=== PATIENT | female | born 1980 | race Caucasian/White ===

== ENCOUNTER 2021-11-28 18:00 | Emergency (ER) | payer OTHER ==
[2021-11-28] MEDS ORDERED: FAMOTIDINE 20 MG/50 ML IVPB 20 MG/50 ML MG IVPB ONE ×2 (18:19→18:26)
[2021-11-28] MEDS ORDERED: ACETAMINOPHEN 1000 MG/100 ML BAG IVPB ONE (18:19)
[2021-11-28] MEDS ORDERED: LACTATED RINGERS SOLUTION 1000 ML INFUS.BAG IV ONE (18:19)
[2021-11-28] MEDS ORDERED: ONDANSETRON 4 MG/2 ML VIAL IVPUSH ONE (18:19)
[2021-11-28] MEDS ORDERED: ACETAMINOPHEN INJECTION 100 ML IVPB ONE (18:26)
[2021-11-28] MEDS ORDERED: ONDANSETRON 4 MG/2 ML VIAL ONE (18:27)
[2021-11-28 18:44] VITALS: TEMP 98.5; BMI 24.2
[2021-11-28] MEDS ORDERED: KETOROLAC TROMETHAMINE 15 MG/ML VIAL IVPUSH ONE (18:54)
[2021-11-28 18:56] LABS: INR 1.13 (0.83-1.09)
[2021-11-28 18:58] LABS: ACTIVATED PTT 29.3 SECONDS (25.2-36.5)
[2021-11-28] MEDS ORDERED: KETOROLAC TROMETHAMINE 15 MG/ML VIAL ONE (18:59)
[2021-11-28 19:01] LABS: ALBUMIN 3.9 g/dl (3.4-5.0); BILIRUBIN,TOTAL 0.3 mg/dl (0.2-1); CALCIUM 9.3 mg/dl (8.5-10); CREATININE 0.7 mg/dl (0.55-1.3); TOT PROT 6.9 g/dl (6.4-8.2)
[2021-11-28 19:38] LABS: BASO % 0.7 % (0-2.0); EOS % 5.5 % (0-4.5); HEMATOCRIT 40.7 % (32.4-45.2); HEMOGLOBIN 13.7 GM/dL (10.7-15.3); MCH 28.1 pg (25.7-33.7); MCHC 33.6 g/dl (32.0-36.0); MEAN CELL VOLUME 83.6 fl (80-96); MEAN PLT VOLUME 8.9 fl (7.5-11.1); MONO % 9.9 % (3.8-10.2); NEUT % 59.9 % (42.8-82.8); PLATELET COUNT 279 10^3/uL (134-434); RBC 4.86 M/mm3 (3.60-5.2); RDW 14.2 % (11.6-15.6)
[2021-11-28 19:48] VITALS: BP 108/58; PULSE 61
== END 2021-11-28 20:00 | disposition home or self-care (01) ==
LOC: FER 18:00
PROC: 3E0333Z Introduction of Anti-inflammatory into Peripheral Vein, Percutaneous Approach (ICD-10-PCS; principal; 2021-11-28)
PROC: 3E033GC Introduction of Other Therapeutic Substance into Peripheral Vein, Percutaneous Approach (ICD-10-PCS; 2021-11-28)
PROC: 3E0333Z Introduction of Anti-inflammatory into Peripheral Vein, Percutaneous Approach (ICD-10-PCS; 2021-11-28)
PROC: 3E033GC Introduction of Other Therapeutic Substance into Peripheral Vein, Percutaneous Approach (ICD-10-PCS; 2021-11-28)
DX: R07.9 Chest pain, unspecified (principal)
CPT/HCPCS: 36415; 71045-TC-FY; 80053; 82550; 84484; 84703; 85025; 85610; 85730; 93005; 96374; 96375; 99285-25; C9803; J0131; U0003; U0005

== ENCOUNTER 2025-03-21 21:48 | Emergency (ER) | payer OTHER ==
[2025-03-21 21:57] VITALS: BP 111/58; PULSE 70; RESP 18; TEMP 98.1; BMI 26.9
== END 2025-03-21 23:05 | disposition home or self-care (01) ==
LOC: FER 21:48
DX: R07.89 Other chest pain (principal); R20.2 Paresthesia of skin; Z63.4 Disappearance and death of family member
CPT/HCPCS: 36415; 71045-TC-FY; 84484; 93005; 93010; 99285-25